=== PATIENT | male | born 1980 | race Caucasian/White ===

== ENCOUNTER 2018-08-31 15:33 | Emergency (ER) | payer SELFPAY ==
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
[2018-08-31 16:30] VITALS: BP 111/72
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
== END 2018-08-31 17:19 | disposition home or self-care (01) ==
LOC: ER 15:57
DX: Z87.81 Personal history of (healed) traumatic fracture (principal); M79.662 Pain in left lower leg
CPT/HCPCS: 99284